=== PATIENT | female | born 1955 | race Hispanic/Latino ===

== ENCOUNTER → 2016-08-19 | Outpatient (CLI) | payer OTHER ==
[~2016-08-19] MED LIST: AMBIEN10 MG PO; ASPIR-TRIN325 M1 PO; ASPIRIN EC325 MG PO; ATROVENT H200 INHALA IH; BENZONATATE100 MG PO; DIOVAN320 MG PO; GUAIFENESI100 MG/5 M PO; HUMALOG MI100 UNIT/6 SC; HUMALOG100 UNIT/1 SC; K-DUR10 MEQ PO; LASIX20 MG PO; LEVEMIR100 UNIT/2 SC; LEVOFLOXACIN750 MG PO; LOPRESSOR100 M1 PO; NORVASC5 MG PO; NOVOLOG MI100 UNIT/2 SQ; OXYCODONE-APAP1 EACH PO; PERCOCET 10-321 EACH PO; PERCOCET 10/1 TABLET PO; PREDNISONE5 MG PO; Prilosec PO; SIMVASTATIN10 M1 PO; SIMVASTATIN10 MG PO; VENTOLIN HFA18 GM IH
== END | disposition home or self-care (01) ==
LOC: NUC 06:18
DX: K31.84 Gastroparesis (principal)
CPT/HCPCS: 78264; A9541

== ENCOUNTER 2016-11-19 11:03 | Emergency (ER) | payer OTHER ==
[~2016-11-19] VITALS: Ht 149.9 cm; Wt 67.9 kg
[2016-11-19 12:24] LABS: HEMATOCRIT 45.1 % (36.0-46.0); MCH 27.9 PG (29.0-34.0); MCHC 32.8 G/DL (30.0-36.0); MCV 84.9 FL (83-99); MEAN PLAT.VOLUME 9.9 uM^3 (9.5-12.4); PLATELET COUNT 332 K/uL (156-360); RBC DIS.WIDTH-CV 12.7 % (11.8-14.6); RBC DIS.WIDTH-SD 38.9 % (39-53); RED BLOOD COUNT 5.31 M/uL (3.80-5.20); WHITE BLOOD COUNT 14.8 K/uL (4.1-10.2)
[2016-11-19 12:33] LABS: CHLORIDE 92 mEq/L (99-109); POTASSIUM 3.8 mEq/L (3.7-5.4); SODIUM 134 mEq/L (136-147)
[2016-11-19 12:35] LABS: GLUCOSE 225 mg/dL (70-99)
[2016-11-19 12:36] LABS: ANION GAP 17 MEQ/L (2-14)
[2016-11-19 12:37] LABS: TOTAL BILIRUBIN 0.4 mg/dL (0.0-1.0)
[2016-11-19 12:38] LABS: ALKALINE PHOSPHATASE 129 IU/L (3-129); GFR ESTIMATE (CALCULATED) > 59 mL/min/
[2016-11-19 12:40] LABS: UREA NITROGEN (BUN) 27 mg/dL (9-23)
[2016-11-19 19:33] LABS: ADD MIUA? YES; BILIRUBIN NEGATIVE; BLOOD NEGATIVE; COLOR YELLOW ((YELLOW)); GLUCOSE (STRIP) >=500; KETONES 20; LEUKOCYTES NEGATIVE; NITRITE POSITIVE; PROTEIN (STRIP) 30; UROBILINOGEN 0.2 MG/DL (0.2-1.0)
[2016-11-19 19:54] LABS: BACTERIA RARE /HPF; EPITHELIAL CELLS RARE /HPF; MUCUS TRACE /LPF; UCUL ADDED? YES
[2016-11-19 20:01] LABS: SPECIFIC GRAVITY 1.069 (1.000-1.030)
[2016-11-19] MEDS ORDERED: PYRIDIUM100 MG PO (20:30)
[2016-11-19] MEDS ORDERED: NAPROSYN500 MG PO (20:30)
[2016-11-19] MEDS ORDERED: KEFLEX500 MG PO (20:30)
[2016-11-19 21:11] VITALS: BP 198/95
== END 2016-11-19 21:14 | disposition home or self-care (01) ==
LOC: EME 11:03
DX: N39.0 Urinary tract infection, site not specified (principal); R31.9 Hematuria, unspecified; Z90.710 Acquired absence of both cervix and uterus; I10 Essential (primary) hypertension; E11.65 Type 2 diabetes mellitus with hyperglycemia; M54.5 Low back pain; Z79.4 Long term (current) use of insulin
CPT/HCPCS: 74177; 80053; 81003; 85027; 87077; 87086 GA; 87186; 99281; 99285; J1885; J2405; J7030

== ENCOUNTER 2017-10-26 15:23 | Inpatient (IN) | payer OTHER ==
[~2017-10-26] VITALS: Ht 152.4 cm; Wt 78.2 kg
[~2017-10-26 15:23] MED LIST changes: +KEFLEX500 MG PO; -LOPRESSOR100 M1 PO; +LOPRESSOR50 MG PO; +NAPROSYN500 MG PO; +PYRIDIUM100 MG PO
[2017-10-26 16:27] LABS: HEMATOCRIT 35.5 % (36.0-46.0); HEMOGLOBIN 11.9 G/DL (11.9-15.5); MCH 29.1 PG (29.0-34.0); MCHC 33.5 G/DL (30.0-36.0); MCV 86.8 FL (83-99); PLATELET COUNT 275 K/uL (156-360); RBC DIS.WIDTH-CV 12.5 % (11.8-14.6); RBC DIS.WIDTH-SD 39.6 % (39-53); RED BLOOD COUNT 4.09 M/uL (3.80-5.20); WHITE BLOOD COUNT 15.9 K/uL (4.1-10.2)
[2017-10-26 16:37] LABS: CHLORIDE 91 mEq/L (99-109); POTASSIUM 3.9 mEq/L (3.7-5.4); SODIUM 137 mEq/L (136-147)
[2017-10-26 16:39] LABS: TOTAL PROTEIN 7.7 g/dL (6.4-8.3)
[2017-10-26 16:41] LABS: TOTAL BILIRUBIN 0.6 mg/dL (0.0-1.0)
[2017-10-26 16:42] LABS: GLUCOSE 596 mg/dL (70-99)
[2017-10-26 16:43] LABS: ALKALINE PHOSPHATASE 156 IU/L (3-129); CREATININE 0.9 mg/dL (0.6-1.3); GFR ESTIMATE (CALCULATED) > 59 mL/min/
[2017-10-26 16:44] LABS: UREA NITROGEN (BUN) 14 mg/dL (9-23)
[2017-10-26 16:45] LABS: AST (GOT) 21 IU/L (2-34)
[2017-10-26 16:46] LABS: ALT (GPT) 27 IU/L (3-49); LIPASE 2 U/L (1.0-51.0)
[2017-10-26 16:48] LABS: TROP-I INTERPRETATION INDETERMINATE; TROPONIN-I 0.49 ng/mL (0.0-0.30)
[2017-10-26 17:04] LABS: CARBON DIOXIDE (BICARBONATE) 38.4 MEQ/L (20-31)
[2017-10-26] MEDS ORDERED: OXYCODONE HCL10 MG PO (18:54)
[2017-10-26] MEDS ORDERED: NOVOLOG 10100 UNITS/ SC (18:57)
[2017-10-26] MEDS ORDERED: QUETIAPINE FUM100 MG PO (18:58)
[2017-10-26] MEDS ORDERED: DULOXETINE HCL60 MG PO (18:58)
[2017-10-26 18:59] LABS: APPEARANCE CLEAR ((CLEAR)); BILIRUBIN NEGATIVE; BLOOD SMALL; COLOR YELLOW ((YELLOW)); GLUCOSE (STRIP) >=500; KETONES 20; LEUKOCYTES TRACE; NITRITE NEGATIVE; PROTEIN (STRIP) NEGATIVE; SPECIFIC GRAVITY 1.056 (1.000-1.030); UROBILINOGEN 0.2 MG/DL (0.2-1.0)
[2017-10-26] MEDS ORDERED: LASIX20 MG PO (19:00)
[2017-10-26] MEDS ORDERED: VALSARTAN-HCTZ1 EAC3 PO (19:09)
[2017-10-26 19:40] LABS: BACTERIA NONE SEEN /HPF; EPITHELIAL CELLS 1+ /HPF; MUCUS NONE SEEN /LPF; RED BLOOD CELLS 20-30 /HPF (0-5); UCUL ADDED? YES
[2017-10-26 22:15] LABS: CARBON DIOXIDE (BICARBONATE) 39.7 MEQ/L (20-31)
[2017-10-26 22:23] LABS: CHLORIDE 95 mEq/L (99-109); POTASSIUM 3.7 mEq/L (3.7-5.4); SODIUM 139 mEq/L (136-147)
[2017-10-26 22:29] LABS: CREATININE 0.8 mg/dL (0.6-1.3); GFR ESTIMATE (CALCULATED) > 59 mL/min/; UREA NITROGEN (BUN) 13 mg/dL (9-23)
[2017-10-26 22:31] LABS: TROP-I INTERPRETATION INDETERMINATE; TROPONIN-I 0.52 ng/mL (0.0-0.30)
[2017-10-26 22:33] LABS: GLUCOSE 441 mg/dL (70-99)
[2017-10-26 22:35] VITALS: BP 173/81
[2017-10-26 22:51] LABS: HDL CHOLESTEROL 30 MG/DL (Desirable>=50); LDL CHOLESTEROL 111 mg/dL (Desirable<100); NON-HDL CHOLESTEROL 143 mg/dL (Desirable<160); TOTAL CHOLESTEROL 173 mg/dL (Desirable<200); TRIGLYCERIDES 162 MG/DL (Normal: <150)
[2017-10-27 05:01] LABS: HEMATOCRIT 33.5 % (36.0-46.0); MCH 29.3 PG (29.0-34.0); MCHC 32.8 G/DL (30.0-36.0); MCV 89.1 FL (83-99); PLATELET COUNT 261 K/uL (156-360); RBC DIS.WIDTH-CV 12.8 % (11.8-14.6); RBC DIS.WIDTH-SD 41.6 % (39-53); RED BLOOD COUNT 3.76 M/uL (3.80-5.20); WHITE BLOOD COUNT 15.5 K/uL (4.1-10.2)
[2017-10-27 05:10] LABS: INTER. NORMALIZED RATIO 1.2
[2017-10-27 05:13] LABS: CHLORIDE 97 mEq/L (99-109); POTASSIUM 3.9 mEq/L (3.7-5.4); SODIUM 140 mEq/L (136-147)
[2017-10-27 05:19] LABS: CREATININE 0.7 mg/dL (0.6-1.3); GFR ESTIMATE (CALCULATED) > 59 mL/min/
[2017-10-27 05:20] LABS: UREA NITROGEN (BUN) 14 mg/dL (9-23)
[2017-10-27 05:21] LABS: GLUCOSE 426 mg/dL (70-99); TROP-I INTERPRETATION INDETERMINATE; TROPONIN-I 0.44 ng/mL (0.0-0.30)
[2017-10-27 08:11] VITALS: BP 172/77
[2017-10-27 11:14] LABS: BENZODIAZEPINES, URINE SCREEN Negative (200 ng/mL)
[2017-10-27 11:51] VITALS: BP 158/76
[2017-10-27 14:28] LABS: TROP-I INTERPRETATION INDETERMINATE; TROPONIN-I 0.48 ng/mL (0.0-0.30)
[2017-10-27] MEDS ORDERED: HUMALOG MI100 UNIT/6 SC (15:12)
[2017-10-27 16:08] VITALS: BP 136/75
[2017-10-27 19:45] VITALS: BP 158/77
[2017-10-28] VITALS (7 sets, daily range): BP systolic 135–202; BP diastolic 63–96
[2017-10-28 06:17] LABS: HEMATOCRIT 34.3 % (36.0-46.0); HEMOGLOBIN 10.8 G/DL (11.9-15.5); MCH 28.6 PG (29.0-34.0); MCHC 31.5 G/DL (30.0-36.0); PLATELET COUNT 229 K/uL (156-360); RBC DIS.WIDTH-CV 12.7 % (11.8-14.6); RBC DIS.WIDTH-SD 42.4 % (39-53); RED BLOOD COUNT 3.77 M/uL (3.80-5.20); WHITE BLOOD COUNT 13.8 K/uL (4.1-10.2)
[2017-10-28 06:41] LABS: CHLORIDE 95 MEQ/L (99-109); CREATININE 0.5 MG/DL (0.6-1.3); GFR ESTIMATE (CALCULATED) > 59 mL/min/; GLUCOSE 254 mg/dL (70-99); POTASSIUM 3.7 MEQ/L (3.7-5.4); SODIUM 138 MEQ/L (136-147); UREA NITROGEN (BUN) 20 mg/dL (9-23)
[2017-10-28 08:49] LABS: TROP-I INTERPRETATION INDETERMINATE; TROPONIN-I 0.33 ng/mL (0.0-0.30)
[2017-10-29 04:32] VITALS: BP 174/83
[2017-10-29 07:39] VITALS: BP 153/77
[2017-10-29 09:37] LABS: DEVICE NC; O2 FLOW 3 L/MIN; SITE LR; TOTAL RESP RATE 18 resp/min; pH 7.38 (7.35-7.45)
[2017-10-29 09:38] LABS: BASE EXCESS 5.7 mEq/L (-3 to +3); BICARBONATE 31.9 mEq/L (22-26); CARBOXY HGB 0 % (0-5); METHEMOGLOBIN 0 % (0-1.5); PCO2 54 mm Hg (35-45); PO2 122 mm Hg (80-100)
[2017-10-29 12:05] VITALS: BP 134/73
[2017-10-29 14:23] LABS: BASOPHIL (%) 0.1 % (0-1); EOSINOPHIL (%) 0.3 % (0-5); HEMATOCRIT 34.9 % (36.0-46.0); HEMOGLOBIN 11.1 G/DL (11.9-15.5); IMMATURE GRANULOCYTE (%) 0.3 % (0.0-0.7); LYMPHOCYTE (%) 16.7 % (15-42); LYMPHOCYTE COUNT 1.8 K/uL (1.0-2.8); MCH 28.9 PG (29.0-34.0); MCHC 31.8 G/DL (30.0-36.0); MCV 90.9 FL (83-99); NEUTROPHIL (%) 73.6 % (45-76); NEUTROPHIL COUNT 8.1 K/uL (1.8-6.4); RBC DIS.WIDTH-CV 12.7 % (11.8-14.6); RBC DIS.WIDTH-SD 41.9 % (39-53); RED BLOOD COUNT 3.84 M/uL (3.80-5.20)
[2017-10-29 14:24] LABS: PLATELET COUNT 303 K/uL (156-360)
[2017-10-29 14:31] LABS: ALBUMIN 3.5 g/dL (3.2-4.8); CHLORIDE 102 mEq/L (99-109); POTASSIUM 3.3 mEq/L (3.7-5.4); SODIUM 142 mEq/L (136-147)
[2017-10-29 14:34] LABS: TOTAL PROTEIN 6.7 g/dL (6.4-8.3)
[2017-10-29 14:36] LABS: GLUCOSE 56 mg/dL (70-99); TOTAL BILIRUBIN 0.5 mg/dL (0.0-1.0)
[2017-10-29 14:37] LABS: ALKALINE PHOSPHATASE 157 IU/L (3-129); CREATININE 0.6 mg/dL (0.6-1.3); GFR ESTIMATE (CALCULATED) > 59 mL/min/
[2017-10-29 14:38] LABS: UREA NITROGEN (BUN) 15 mg/dL (9-23)
[2017-10-29 14:43] LABS: ALT (GPT) 67 IU/L (3-49); AST (GOT) 53 IU/L (2-34)
[2017-10-29 15:11] VITALS: BP 137/62
[2017-10-29 23:36] VITALS: BP 145/77
[2017-10-30 04:05] VITALS: BP 186/81
[2017-10-30 05:44] LABS: HEMATOCRIT 33.2 % (36.0-46.0); HEMOGLOBIN 10.1 G/DL (11.9-15.5); MCH 28.1 PG (29.0-34.0); MCHC 30.4 G/DL (30.0-36.0); MCV 92.5 FL (83-99); PLATELET COUNT 283 K/uL (156-360); RBC DIS.WIDTH-CV 12.7 % (11.8-14.6); RBC DIS.WIDTH-SD 42.6 % (39-53); RED BLOOD COUNT 3.59 M/uL (3.80-5.20); WHITE BLOOD COUNT 9.2 K/uL (4.1-10.2)
[2017-10-30 05:59] VITALS: BP 152/90
[2017-10-30 07:29] LABS: ALBUMIN 3.3 G/DL (3.2-4.8); ALKALINE PHOSPHATASE 148 IU/L (3-129); ALT (GPT) 49 IU/L (3-49); AST (GOT) 31 IU/L (2-34); CHLORIDE 99 MEQ/L (99-109); CREATININE 0.5 MG/DL (0.6-1.3); GFR ESTIMATE (CALCULATED) > 59 mL/min/; SODIUM 140 MEQ/L (136-147); TOTAL BILIRUBIN 0.5 MG/DL (0.0-1.0); TOTAL PROTEIN 5.9 G/DL (6.4-8.3); UREA NITROGEN (BUN) 11 mg/dL (9-23)
[2017-10-30 07:32] LABS: GLUCOSE 163 mg/dL (70-99)
[2017-10-30 08:11] VITALS: BP 179/87
[2017-10-30 15:17] VITALS: BP 134/66
[2017-10-30 19:30] VITALS: BP 167/81
[2017-10-30 23:57] VITALS: BP 149/80
[2017-10-31 04:26] VITALS: BP 157/72
[2017-10-31 05:49] LABS: HEMATOCRIT 34.7 % (36.0-46.0); HEMOGLOBIN 10.4 G/DL (11.9-15.5); MCH 28.2 PG (29.0-34.0); PLATELET COUNT 305 K/uL (156-360); RBC DIS.WIDTH-CV 12.6 % (11.8-14.6); RBC DIS.WIDTH-SD 43.7 % (39-53); RED BLOOD COUNT 3.69 M/uL (3.80-5.20)
[2017-10-31 06:14] LABS: CHLORIDE 99 MEQ/L (99-109); CREATININE 0.5 MG/DL (0.6-1.3); GFR ESTIMATE (CALCULATED) > 59 mL/min/; MAGNESIUM 2.1 mg/dl (1.3-2.7); POTASSIUM 4.5 MEQ/L (3.7-5.4); SODIUM 141 MEQ/L (136-147); UREA NITROGEN (BUN) 9 mg/dL (9-23)
[2017-10-31 06:23] LABS: GLUCOSE 76 mg/dL (70-99)
[2017-10-31 07:43] VITALS: BP 155/68
[2017-10-31 11:41] VITALS: BP 151/64
[2017-10-31 15:59] VITALS: BP 156/72
[2017-10-31 19:48] VITALS: BP 176/83
[2017-10-31 23:49] VITALS: BP 163/75
[2017-11-01 03:52] VITALS: BP 186/86
[2017-11-01 05:38] LABS: HEMATOCRIT 37.6 % (36.0-46.0); HEMOGLOBIN 11.4 G/DL (11.9-15.5); MCH 27.9 PG (29.0-34.0); MCHC 30.3 G/DL (30.0-36.0); MCV 91.9 FL (83-99); PLATELET COUNT 328 K/uL (156-360); RBC DIS.WIDTH-CV 12.5 % (11.8-14.6); RBC DIS.WIDTH-SD 42.4 % (39-53); RED BLOOD COUNT 4.09 M/uL (3.80-5.20); WHITE BLOOD COUNT 7.7 K/uL (4.1-10.2)
[2017-11-01 06:05] LABS: CHLORIDE 96 MEQ/L (99-109); CREATININE 0.5 MG/DL (0.6-1.3); GFR ESTIMATE (CALCULATED) > 59 mL/min/; MAGNESIUM 2.1 mg/dl (1.3-2.7); POTASSIUM 3.7 MEQ/L (3.7-5.4); SODIUM 140 MEQ/L (136-147); UREA NITROGEN (BUN) 8 mg/dL (9-23)
[2017-11-01 06:25] LABS: ALBUMIN 3.5 G/DL (3.2-4.8); ALKALINE PHOSPHATASE 129 IU/L (3-129); ALT (GPT) 27 IU/L (3-49); CHLORIDE 97 MEQ/L (99-109); CREATININE 0.5 MG/DL (0.6-1.3); GFR ESTIMATE (CALCULATED) > 59 mL/min/; POTASSIUM 3.6 MEQ/L (3.7-5.4); SODIUM 140 MEQ/L (136-147); TOTAL BILIRUBIN 0.4 MG/DL (0.0-1.0); UREA NITROGEN (BUN) 8 mg/dL (9-23)
[2017-11-01 06:33] LABS: GLUCOSE 50 mg/dL (70-99)
[2017-11-01 06:45] LABS: AST (GOT) 14 IU/L (2-34); GLUCOSE 47 mg/dL (70-99); TOTAL PROTEIN 6.8 G/DL (6.4-8.3)
[2017-11-01 07:46] VITALS: BP 146/69
[2017-11-01 11:45] VITALS: BP 144/66
[2017-11-01 15:36] VITALS: BP 180/89
[2017-11-01 19:27] VITALS: BP 195/84
[2017-11-01 20:00] VITALS: BP 152/82
[2017-11-02] VITALS (8 sets, daily range): BP systolic 137–196; BP diastolic 64–88
[2017-11-02 07:10] LABS: CHLORIDE 97 MEQ/L (99-109); POTASSIUM 4.3 MEQ/L (3.7-5.4); SODIUM 138 MEQ/L (136-147)
[2017-11-02 07:15] LABS: CREATININE 0.5 MG/DL (0.6-1.3); GFR ESTIMATE (CALCULATED) > 59 mL/min/; GLUCOSE 74 mg/dL (70-99); UREA NITROGEN (BUN) 6 mg/dL (9-23)
[2017-11-03 03:48] VITALS: BP 140/74
[2017-11-03 07:48] VITALS: BP 169/77
== END 2017-11-03 11:53 | disposition home or self-care (01) | DRG 391 ==
LOC: EME 15:23 → ENRESERV 20:16 → EDOF 20:16 → ENRESERV 20:42 → 4SOUTH 22:24 → ENPENDDIS 11-03 → 4SOUTH 11-03 11:53
PROVIDERS: Hospitalist; Internal Medicine; Physician Assistant Medical
DX: K29.00 Acute gastritis without bleeding (principal); N30.00 Acute cystitis without hematuria; E11.10 Type 2 diabetes mellitus with ketoacidosis without coma; I11.0 Hypertensive heart disease with heart failure; I50.21 Acute systolic (congestive) heart failure; E11.43 Type 2 diabetes mellitus with diabetic autonomic (poly)neuropathy; K31.84 Gastroparesis; I24.8 Other forms of acute ischemic heart disease; F05 Delirium due to known physiological condition; E11.649 Type 2 diabetes mellitus with hypoglycemia without coma; E86.0 Dehydration; E87.2 Acidosis; I42.9 Cardiomyopathy, unspecified; J98.11 Atelectasis; R09.02 Hypoxemia; I25.10 Atherosclerotic heart disease of native coronary artery without angina pectoris; K21.9 Gastro-esophageal reflux disease without esophagitis; E66.9 Obesity, unspecified; Z68.33 Body mass index [BMI] 33.0-33.9, adult; I44.7 Left bundle-branch block, unspecified; G89.29 Other chronic pain; D64.9 Anemia, unspecified; E53.8 Deficiency of other specified B group vitamins; M54.5 Low back pain; E78.5 Hyperlipidemia, unspecified; K29.50 Unspecified chronic gastritis without bleeding; K76.0 Fatty (change of) liver, not elsewhere classified; Z77.22 Contact with and (suspected) exposure to environmental tobacco smoke (acute) (chronic); Z79.4 Long term (current) use of insulin
CPT/HCPCS: 36600; 70450; 71045; 74177; 78582; 80048; 80048 91; 80053; 80061; 80306 90; 81003; 82010; 82140; 82803; 82948; 83605; 83690; 83735; 84484; 85025; 85027; 85379; 85610; 85730; 87040; 87086 GA; 93005; 93306; 93970; 94640; 94799; 97530 GP; 99281; 99285; A9540; A9567; C9113; G0378; J0696; J1650; J1815; J1940; J2270; J2405; J2765; J7030